=== PATIENT | male | born 1965 | race Two or more races ===

== ENCOUNTER 2019-07-02 14:43 | Emergency (ER) | payer MEDICAID ==
[~2019-07-02] VITALS: Ht 167.6 cm; Wt 78.0 kg
[2019-07-02] MEDS ORDERED: PREDNISONE 20MG TABLET PO ONE (21:30)
[2019-07-02] MEDS ORDERED: ACYCLOVIR 400 MG TABLET PO ONE (21:30)
[2019-07-02 21:38] VITALS: BP 155/78
== END 2019-07-02 21:41 | disposition home or self-care (01) ==
LOC: ER 14:43
DX: B01.9 Varicella without complication (principal)
CPT/HCPCS: 99283; J7512